=== PATIENT | male | born 1955 | race Caucasian/White ===

== ENCOUNTER 2020-03-23 19:01 | Emergency (ER) | payer OTHER ==
[~2020-03-23] VITALS: Ht 165.1 cm; Wt 93.0 kg
[2020-03-23 19:42] VITALS: BP 140/89
--- NOTE | 2020-03-23 19:52 | NUR ---
PT TAKEN TO BED 2
--- NOTE | 2020-03-23 20:04 | NUR ---
PT WAS WALKING INTO A RESTROOM AND SLIPPED ON A WET FLOOR, STATES HIS LEFT FOOT WENT IN ONE DIRECTION AND HIS KNEE TWISTED INTO THE OTHER DIRECTION. THIS HAPPENED APPROX 5-6 HRS AGO. PT UNABLE TO PUT ANY KIND OF PRESSURE ON LEG/KNEE. NO DEFORMITY NOTED TO KNEE. PT ABLE TO WIGGLE TOES AND PALPABLE PEDAL PULSE (+3). SKIN IN TACT. PT ASSITED ONTO GURNEY AND GIVEN ICE PACK FOR LEFT KNEE. PT TAKEN TO BED 2 VIA WHEELCHAIR. BED IN LOWEST POSITION AND SIDERAIL UP X 1. NKA HX - DM
--- NOTE | 2020-03-23 20:05 | NUR ---
X-RAY AT BEDSIDE
--- NOTE | 2020-03-23 20:11 | NUR ---
Dr. Lacey examining patient.
[2020-03-23] MEDS ORDERED: KETOROLAC 60 MG/2 ML VIAL IM ONE (20:15)
--- NOTE | 2020-03-23 20:45 | NUR ---
Patient discharged with v/s stable. Written and verbal after care instructions given and explained. Patient verbalized understanding. Ambulatory with steady gait. All questions addressed prior to discharge. Advised to follow up with PMD. Pt given crutches and instructed on how to walk with them. Javier wrap applied on the lt knee. Prescription of motrin was given. Pt no other concerns noted and d/c
[2020-03-23 20:47] VITALS: BP 133/84
== END 2020-03-23 20:45 | disposition home or self-care (01) ==
LOC: MED 19:01
DX: S83.92XA Sprain of unspecified site of left knee, initial encounter (principal); E11.9 Type 2 diabetes mellitus without complications; I10 Essential (primary) hypertension; H91.92 Unspecified hearing loss, left ear; W19.XXXA Unspecified fall, initial encounter; Y93.89 Activity, other specified; Y92.89 Other specified places as the place of occurrence of the external cause; Y99.8 Other external cause status
CPT/HCPCS: 29505; 73562; 96372; 99283; J1885